=== PATIENT | male | born 1950 | race Caucasian/White ===

== ENCOUNTER 2021-10-11 10:29 | Emergency (ER) | payer OTHER, BC ==
[2021-10-11 12:01] LABS: Absolute Lymphocytes (CBC) 1.8 K/uL (0.7-4.9); Basophils % 0.9 % (0-1.3); Lymphocytes % 19.9 % (15.3-44.8); MPV 8.3 fL (7.6-11.3); RBC Red Blood Cell Count 5.31 M/uL (4.33-5.43)
[2021-10-11 12:07] LABS: Urine Blood Negative (Negative); Urine Glucose Negative (Negative); Urine Protein Negative (Negative); Urine Specific Gravity >=1.030 (1.005-1.030)
[2021-10-11 12:19] LABS: Albumin 3.5 g/dL (3.4-5.0); Bilirubin Direct 0.1 mg/dL (0-0.2); Bilirubin Total 0.5 mg/dL (0.2-1.0); Potassium 4.4 mmol/L (3.5-5.1); Protein, Total 7.4 g/dL (6.4-8.2)
--- NOTE | 2021-10-11 12:58 | RAD REPORT ---
EXAM DESCRIPTION: CTAbdomen Pelvis W Contrast - 10/11/2021 12:43 pm CLINICAL HISTORY: ABD PAIN COMPARISON: Abdomen Pelvis W Contrast dated 06/25/2016; CT ABD PELVIS W CONTRAST dated 05/27/2012 TECHNIQUE: CT of the abdomen and pelvis was performed. All CT scans are performed using dose optimization technique as appropriate and may include automated exposure control or mA/KV adjustment according to patient size. FINDINGS: Lower chest: No acute abnormality. Liver: Hepatic steatosis. Biliary: No biliary ductal dilatation. Stomach: No significant focal abnormality. Duodenum: No significant focal abnormality. Pancreas: No significant abnormality. Spleen: No significant abnormality. Adrenal: No suspicious lesions. Kidney/ureter: No hydronephrosis. No renal calculi. Too small to characterize and/or benign appearing renal lesions are noted. Retroperitoneum: No retroperitoneal adenopathy. Vascular: No aneurysm. Atherosclerosis. Bowel: No significant focal abnormality. Appendectomy. Peritoneum: No ascites or free air. Small fat containing left inguinal hernia. Bladder: Grossly unremarkable. Reproductive: Mild prostatomegaly. Bones: No acute fracture. Other: n/a IMPRESSION: No acute intra-abdominal or pelvic finding. Incidental findings as noted above.
--- NOTE | 2021-10-11 13:10 | ER ---
Nurse's Notes [facility] Name: Butch Jaramillo Sr Age: 71 yrs Sex: Male : 1950 Arrival Date: 10/11/2021 Time: 10:30 Bed 15 Private MD: Merritt Wheeler V Diagnosis: Constipation, unspecified Presentation: 10/11 10:55 Chief complaint: Patient states: Left side back pain that comes around to [facility] x 3 days. vg1 Denies nausea/vomiting but states that stool is 'ribbon like' for the past three days. States "I tried to go to the restroom this morning and I couldn't". Coronavirus screen: Vaccine status: Patient reports receiving the 2nd dose of the covid vaccine. Client denies travel out of the [place] in the last 14 days. At this time, the client does not indicate any symptoms associated with coronavirus-19. Ebola Screen: Patient negative for fever greater than or equal to 101.5 degrees Fahrenheit, and additional compatible Ebola Virus Disease symptoms. Initial Sepsis Screen: Does the patient meet any 2 criteria? No. Patient's initial sepsis screen is negative. Does the patient have a suspected source of infection? No. Patient's initial sepsis screen is negative. Risk Assessment: Do you want to hurt yourself or someone else? Patient reports no desire to harm self or others. Onset of symptoms was October 08, 2021. 10:55 Method Of Arrival: Ambulatory vg1 10:55 Acuity: BREANNA 3 vg1 Triage Assessment: 10:57 General: Appears in no apparent distress. uncomfortable, Behavior is calm, cooperative. vg1 Pain: Complains of pain in posterior aspect of left lateral abdomen and left lower quadrant Pain currently is 7 out of 10 on a pain scale. Historical: - Allergies: 10:57 No Known Allergies; vg1 - PMHx: 10:57 Hypertensive disorder; Hypercholesterolemia; vg1 - PSHx: 10:57 Appendectomy; vg1 - Immunization history:: Client reports receiving the 2nd dose of the Covid vaccine. - Social history:: Smoking status: Patient denies any tobacco usage or history of. Patient/guardian denies using alcohol, street drugs, The patient lives with family. - Family history:: not pertinent. Screenin:15 Abuse screen: Denies threats or abuse. Denies injuries from another. Nutritional jg9 screening: No deficits noted. Tuberculosis screening: No symptoms or risk factors identified. Fall Risk None identified. Assessment: 11:15 General: Appears in no apparent distress. Behavior is calm, cooperative, appropriate jg9 for age. Pain: Complains of pain in abdomen-left flank. Pain: Quality of pain is described as. Neuro: No deficits noted. Cardiovascular: No deficits noted. Respiratory: No deficits noted. GI: Reports lower abdominal pain, constipation. : No deficits noted. EENT: No deficits noted. Derm: No deficits noted. Musculoskeletal: No deficits noted. Vital Signs: 10:55 BP 149 / 97; Pulse 83; Resp 16; Temp 98.1; Pulse Ox 97% ; Weight 127.01 kg; Height 6 vg1 ft. 0 in. (182.88 cm); Pain 7/10; 11:45 BP 149 / 90; Pulse 79; Resp 17 S; Pulse Ox 96% on R/A; jg9 11:49 BP 162 / 98; Pulse 67; Resp 16; Temp 98.1; Pulse Ox 100% on R/A; em1 13:15 BP 160 / 92; Pulse 66; Resp 16; Pulse Ox 96% on R/A; jg9 10:55 Body Mass Index 37.97 (127.01 kg, 182.88 cm) vg1 ED Course: 10:30 Patient arrived in ED. am2 10:30 Merritt Wheeler MD is Private Physician. am2 10:57 Triage completed. vg1 10:57 Arm band placed on. vg1 11:01 Ulises Haji MD is Attending Physician. ma2 11:15 Nighat Munoz is Primary Nurse. jg9 11:15 Patient has correct armband on for positive identification. Bed in low position. Call jg9 light in reach. 11:49 Initial lab(s) drawn, by me, sent to lab. Inserted saline lock: 20 gauge in left em1 antecubital area, using aseptic technique. Blood collected. 12:43 CT Abd/Pelvis - IV Contrast Only In Process Unspecified. EDMS Administered Medications: 13:18 Drug: Fleet Enema (sodium phosphate) 133 ml {Note: Patient will take home and use.} jg9 Route: [place]; 13:20 Follow up: Response: Other jg9 Outcome: 13:10 Discharge ordered by MD. elkins 13:43 Patient left the ED. jg9 Signatures: Dispatcher [employer] Tian Cottrell Amanda am2 Alzahri, Mohammad, MD MD ma2 Melyssa Escamilla RN RN vg1 Nighat Munoz jg9
--- NOTE | 2021-10-11 13:11 | EDPHYS ---
Physician Documentation [facility] Name: Butch Jaramillo Sr Age: 71 yrs Sex: Male : 1950 Arrival Date: 10/11/2021 Time: 10:30 Bed 15 Private MD: Merritt Wheeler V ED Physician Ulises Haji HPI: 10/11 11:48 This 71 yrs old Male presents to ER via Ambulatory with complaints of left side pain. ma2 11:48 Onset: The symptoms/episode began/occurred gradually, 1 day(s) ago. Associated signs ma2 and symptoms: Pertinent negatives: blood in stools, constipation, dysuria, fever, shortness of breath, testicular pain, vomiting blood. Severity of pain: At its worst the pain was moderate in the emergency department the pain is unchanged. The patient has not experienced similar symptoms in the past. Historical: - Allergies: 10:57 No Known Allergies; vg1 - PMHx: 10:57 Hypertensive disorder; Hypercholesterolemia; vg1 - PSHx: 10:57 Appendectomy; vg1 - Immunization history:: Client reports receiving the 2nd dose of the Covid vaccine. - Social history:: Smoking status: Patient denies any tobacco usage or history of. Patient/guardian denies using alcohol, street drugs, The patient lives with family. - Family history:: not pertinent. ROS: 11:48 Constitutional: Negative for fever, chills, and weight loss. ma2 11:48 All other systems are negative. Exam: 11:48 Constitutional: This is a well developed, well nourished patient who is awake, alert, ma2 and in no acute distress. Eyes: Pupils equal round and reactive to light, extra-ocular motions intact. Lids and lashes normal. Conjunctiva and sclera are non-icteric and not injected. Cornea within normal limits. Periorbital areas with no swelling, redness, or edema. ENT: Nares patent. No nasal discharge, no septal abnormalities noted. Tympanic membranes are normal and external auditory canals are clear. Oropharynx with no redness, swelling, or masses, exudates, or evidence of obstruction, uvula midline. Mucous membranes moist. Neck: Trachea midline, no thyromegaly or masses palpated, and no cervical lymphadenopathy. Supple, full range of motion without nuchal rigidity, or vertebral point tenderness. No Meningismus. Chest/axilla: Normal chest wall appearance and motion. Nontender with no deformity. No lesions are appreciated. Cardiovascular: Regular rate and rhythm with a normal S1 and S2. No gallops, murmurs, or rubs. Normal PMI, no JVD. No pulse deficits. Respiratory: Lungs have equal breath sounds bilaterally, clear to auscultation and percussion. No rales, rhonchi or wheezes noted. No increased work of breathing, no retractions or nasal flaring. Abdomen/GI: Soft, non-tender, with normal bowel sounds. No distension or tympany. No guarding or rebound. No evidence of tenderness throughout. Skin: Warm, dry with normal turgor. Normal color with no rashes, no lesions, and no evidence of cellulitis. MS/ Extremity: Pulses equal, no cyanosis. Neurovascular intact. Full, normal range of motion. Neuro: Awake and alert, GCS 15, oriented to person, place, time, and situation. Cranial nerves II-XII grossly intact. Motor strength 5/5 in all extremities. Sensory grossly intact. Cerebellar exam normal. Normal gait. Vital Signs: 10:55 BP 149 / 97; Pulse 83; Resp 16; Temp 98.1; Pulse Ox 97% ; Weight 127.01 kg; Height 6 vg1 ft. 0 in. (182.88 cm); Pain 7/10; 11:45 BP 149 / 90; Pulse 79; Resp 17 S; Pulse Ox 96% on R/A; jg9 11:49 BP 162 / 98; Pulse 67; Resp 16; Temp 98.1; Pulse Ox 100% on R/A; em1 13:15 BP 160 / 92; Pulse 66; Resp 16; Pulse Ox 96% on R/A; jg9 10:55 Body Mass Index 37.97 (127.01 kg, 182.88 cm) vg1 MDM: 11:02 Patient medically screened. ma2 11:48 Differential diagnosis: diverticulitis, gastritis, gastroesophageal reflux disease, ma2 Irritable bowel syndrome. 13:10 Data reviewed: vital signs, nurses notes. Counseling: I had a detailed discussion with ma2 the patient and/or guardian regarding: the historical points, exam findings, and any diagnostic results supporting the discharge/admit diagnosis, the presence of at least one elevated blood pressure reading (>120/80) during this emergency department visit, the need for outpatient follow up. Response to treatment: the patient's symptoms have markedly improved after treatment. 10/11 11:27 Order name: Basic Metabolic Panel; Complete Time: 12:59 ma2 10/11 11:27 Order name: CBC with Diff; Complete Time: 12:59 ma2 10/11 11:27 Order name: Hepatic Function; Complete Time: 12:59 ma2 10/11 11:27 Order name: Lipase; Complete Time: 12:59 ma2 10/11 11:27 Order name: CT Abd/Pelvis - IV Contrast Only; Complete Time: 12:59 ma2 10/11 12:07 Order name: Urine Dipstick-Ancillary EDNJ 10/11 11:27 Order name: IV Saline Lock; Complete Time: 12:01 ma2 10/11 11:27 Order name: Labs collected and sent; Complete Time: 12:01 ma2 10/11 11:27 Order name: Urine Dipstick-Ancillary (obtain specimen); Complete Time: 13:11 ma2 Administered Medications: 13:18 Drug: Fleet Enema (sodium phosphate) 133 ml {Note: Patient will take home and use.} jg9 Route: [place]; 13:20 Follow up: Response: Other jg9 Disposition Summary: 10/11/21 13:10 Discharge Ordered Location: Home ma2 Condition: Stable ma2 Diagnosis - Constipation, unspecified ma2 Followup: ma2 - With: Private Physician - When: Tomorrow - Reason: If symptoms return, Continuance of care Discharge Instructions: - Discharge Summary Sheet ma2 - Constipation, Adult, [id number] ma2 Forms: - Medication Reconciliation Form ma2 - Thank You Letter ma2 - Antibiotic Education ma2 - Prescription Opioid Use ma2 Prescriptions: - Fleet Enema - apply 1 vial by RECTAL route 2 times per day; 5 vial; Refills: 0, Product ma2 Selection Permitted - Colace 100 mg Oral Tablet - take 1 tablet by ORAL route every 12 hours; 14 tablet; Refills: 0, Product ma2 Selection Permitted Signatures: Dispatcher [employer] EDMS Ulises Haji MD MD ma2 Melyssa Escamilla, RN RN vg1 Nighat Munoz jg9
[2021-10-11] MEDS ORDERED: FLEET ENEMA ADULT PR ONE (13:17)
[2021-10-11 14:03] VITALS: TEMP 98.1
[2021-10-11 14:20] VITALS: BP 160/92; O2SAT 96
== END 2021-10-11 13:43 | disposition home or self-care (01) ==
LOC: ER 10:29
DX: K59.00 Constipation, unspecified (principal); I10 Essential (primary) hypertension
CPT/HCPCS: 85025; 80048; 36415; 80076; 81003; 83690; 74177; 99284; Q9967

== ENCOUNTER 2024-02-09 14:48 | Observation (INO) | payer OTHER ==
[2024-02-09] MEDS: NACHLORIDE 0.45% 1,000 ML IV SCH (16:41)
[2024-02-09 16:58] VITALS: BMI 36.1
[2024-02-09] MEDS ORDERED: LOPERAMIDE HCL 2 MG CAPSULE PO PRN (17:00)
[2024-02-09] MEDS ORDERED: ONDANSETRON 4 MG (ODT) TAB PO PRN (17:00)
[2024-02-09] MEDS ORDERED: ACETAMINOPHEN 325 MG TABLET PO PRN (17:00)
[2024-02-09] MEDS: PNEUMOCOCCAL VACCINE 0.5 ML IMVAC ONE (17:00)
[2024-02-09] MEDS ORDERED: ONDANSETRON 4 MG/2 ML VIAL IV PRN (17:00)
[2024-02-09] MEDS ORDERED: POLYETHYL GLY 3350 17 GM/DOSE PO PRN (17:00)
[2024-02-09] MEDS ORDERED: DIPHENHYDRAMINE 25 MG TAB/CAP PO PRN (17:00)
[2024-02-09] MEDS: INFLUENZA VACCINE (for 6+ mo) 0.5 ML DOSE IMVAC ONE (17:00)
[2024-02-09] MEDS: ENOXAPARIN 40 MG/0.4 ML SQ SCH (17:23)
[2024-02-09 17:53] LABS: Absolute Basophils 0.1 K/uL (0-0.5); Absolute Eosinophils 0.1 K/uL (0-0.5); Absolute Monocytes 0.7 K/uL (0.1-1.3); Absolute Neutrophil 5.8 K/uL (1.8-8.0); Basophils % 0.9 % (0-1.3); Eosinophils % 1.2 % (0-4.4); Hematocrit 45.5 % (39.6-49.0); Hemoglobin 15.4 g/dL (13.6-17.9); Lymphocytes % 22.6 % (15.3-44.8); MCH 30.5 pg (27.0-35.0); MCHC 33.8 g/dL (32.0-36.0); MCV 90.2 fL (80-100); MPV 8.2 fL (7.6-11.3); Monocytes % 7.9 % (3.3-12.3); Neutrophils % 67.4 % (41.7-73.7); Nucleated Red Blood Cells % 0.1 % (0-0); Platelets 227 thou/uL (152-406); RBC Red Blood Cell Count 5.04 M/uL (4.33-5.43)
[2024-02-09 17:57] LABS: PT Prothrombin Time 11.4 SECONDS (9.5-12.5); Protime INR 1.04
[2024-02-09 18:34] LABS: Albumin 3.4 g/dL (3.4-5.0); Anion Gap 8.2 mEq/L (5.0-15.0); Bilirubin Direct 0.1 mg/dL (0-0.2); Bilirubin Indirect, Calculated 0.4 mg/dL (0.2-0.8); Bilirubin Total 0.5 mg/dL (0.2-1.0); Globulin 3.3 g/dL (2.3-3.5); Magnesium 2.2 mg/dL (1.6-2.4); Phosphorus 3.7 mg/dL (2.5-4.9); Potassium 4.2 mEq/L (3.5-5.1); Protein, Total 6.7 g/dL (6.4-8.2); Thyroid Stimulating Hormone 1.27 uIU/mL (0.358-3.740)
--- NOTE | 2024-02-09 20:39 | RAD REPORT ---
EXAM DESCRIPTION: CT - Abdomen Pelvis W Contrast - 02/09/2024 8:14 pm CLINICAL HISTORY: Abdominal pain COMPARISON: 2020 TECHNIQUE: Computed axial tomography of the abdomen and pelvis was obtained. 100 cc Isovue-300 is ad ministered intravenously. Oral contrast was given. All CT scans are performed using dose optimization technique as appropriate and may include automated exposure control or mA/KV adjustment according to patient size. FINDINGS: Mild fatty liver Spleen, pancreas, adrenals and kidneys appear unremarkable. There is no evidence of diverticulitis Prostate gland is moderately enlarged. Small left inguinal hernia. 5 centimeter lucency containing calcification within the left femur is un changed 2011 and likely benign IMPRESSION: No acute abnormality is displayed
--- NOTE | 2024-02-09 20:48 | RAD REPORT ---
EXAM DESCRIPTION: Dulce Peacock (2 Views)02/09/2024 7:56 pm CLINICAL HISTORY: Abdominal pain COMPARISON: 2016 FINDINGS: The lungs appear clear of acute infiltrate. The heart is normal size IMPRESSION: No acute abnormalities displayed
[2024-02-09] MEDS: Meropenem 1,000 MG in NA CHLORIDE 0.9% 100 ML IV SCH (20:50)
[2024-02-10 07:28] LABS: Absolute Eosinophils 0.2 K/uL (0-0.5); Absolute Lymphocytes (CBC) 2.4 K/uL (0.7-4.9); Absolute Monocytes 0.7 K/uL (0.1-1.3); Absolute Neutrophil 6.1 K/uL (1.8-8.0); Basophils % 0.5 % (0-1.3); Eosinophils % 1.7 % (0-4.4); Hematocrit 45.2 % (39.6-49.0); Hemoglobin 14.9 g/dL (13.6-17.9); Lymphocytes % 25.5 % (15.3-44.8); MCH 30.2 pg (27.0-35.0); MCV 91.3 fL (80-100); Monocytes % 7.7 % (3.3-12.3); Neutrophils % 64.6 % (41.7-73.7); Nucleated Red Blood Cells % 0.1 % (0-0); Platelets 232 thou/uL (152-406); RBC Red Blood Cell Count 4.95 M/uL (4.33-5.43); Red Cell Distribution Width 13.8 % (12.1-15.2)
[2024-02-10 07:37] LABS: Anion Gap 7.9 mEq/L (5.0-15.0); Magnesium 2.2 mg/dL (1.6-2.4); Potassium 3.9 mEq/L (3.5-5.1)
[2024-02-10 08:56] VITALS: BP 142/79; TEMP 97
--- NOTE | 2024-02-10 09:15 | RAD REPORT ---
EXAM DESCRIPTION: MRI - Lumbar Spine Wo Con - 02/10/2024 8:42 am CLINICAL HISTORY: Radiculopathy COMPARISON: 03/01/2014, CT 02/09/2024 TECHNIQUE: Sagittal T1-weighted, T2-weighted and T2-STIR weighted sequences were obtained. Axial T1 -weighted and heavily T2-weighted sequenceswere obtained through the lumbar disc levels. FINDINGS: Lumbar bodies are normal in height and alignment. No suspicious marrow signal. No paraspin al masses. Partially imaged left renal cyst. The canal appears congenitally small. The conus terminates at T12. T12-L1 level: No significant findings. L1-2 level: No significant findings. L2-3 level: Subligamentous disc bulge with facet ligamentum flavum hypertrophy results in some flatte ir[place] of ventral thecal sac but overall no significant central spinal stenosis or neural foraminal salomon rowing. L3-4 level: Broad-based disc bulge with facet ligamentum flavum hypertrophy without significant neura l foraminal narrowing or clinically significant central spinal stenosis. L4-5 level: Mild disc height loss. Broad-based disc bulge with facet ligamentum flavum hypertrophy re sults in moderate right and mild left neural foraminal narrowing. Central spinal stenosis is moderat e. There is some encroachment on the left L5 nerve root at the subarticular zone. L5-S1 level: Mild broad-based disc bulge with facet hypertrophy and small facet effusions results in mild to moderate bilateral neural foraminal narrowing. An annular fissure is present in the disc. No significant central spinal stenosis. Previously noted right L5-S1 synovial cyst is no longer identifi ed. IMPRESSION: Multilevel degenerate disc disease as noted above. With regard to a radiculopathy, neura l foraminal narrowing is most advanced on the right at L4-5. Central spinal stenosis is moderate at L 4-5 as well with some encroachment on the traversing left L5 nerve root at the subarticular zone.Mild to moderate neural foraminal narrowing present bilaterally at L5-S1.
[2024-02-10 09:31] VITALS: O2SAT 94
--- NOTE | 2024-02-11 06:48 | P.DS ---
Admission Date: 02/09/24 Discharge Date: 02/11/24 Disposition: ROUTINE DISCHARGE Discharge Condition: GOOD Hospital Course: DAVID IS MORBIDLY OBESE GM WITH LLQ AND L FLANK PAIN. CLINICALLY DIVERTICULITIS FAILED TO RECOVER AFTER ABX. CT DOES NOT SHOW ANY INFECTIIOUS CHANGES. LUMBAR MRI SHOWS SEVERE SPINAL STENOSIS WHICH IS THE CAUSE OF RADIATING PAIN. HE IS DCED HOME WITH GABAPENTIN AND MEDROL PACK. Vital Signs/Physical Exam: Temp Pulse Resp BP Pulse Ox 97 F 73 18 142/79 H 93 02/10/24 08:00 02/10/24 08:00 02/10/24 08:00 02/10/24 08:00 02/10/24 08:00 Laboratory Data at Discharge: WBC 9.40 thou/uL (4.3-10.9) 02/10/24 05:50 Hgb 14.9 g/dL (13.6-17.9) 02/10/24 05:50 Hct 45.2 % (39.6-49.0) 02/10/24 05:50 Plt Count 232 thou/uL (152-406) 02/10/24 05:50 PT 11.4 SECONDS (9.5-12.5) 02/09/24 17:41 INR 1.04 02/09/24 17:41 APTT 33.9 SECONDS (24.3-36.9) 02/09/24 17:41 Sodium 139 mEq/L (136-145) 02/10/24 05:50 Potassium 3.9 mEq/L (3.5-5.1) 02/10/24 05:50 BUN 10 mg/dL (7-18) 02/10/24 05:50 Creatinine 0.86 mg/dL (0.70-1.30) 02/10/24 05:50 Glucose 94 mg/dL (74-106) 02/10/24 05:50 Phosphorus 3.7 mg/dL (2.5-4.9) 02/09/24 17:41 Magnesium 2.2 mg/dL (1.6-2.4) 02/10/24 05:50 Total Bilirubin 0.5 mg/dL (0.2-1.0) 02/09/24 17:41 AST 22 U/L (15-37) 02/09/24 17:41 ALT 32 U/L (16-61) 02/09/24 17:41 Alkaline Phosphatase 52 U/L (45-117) 02/09/24 17:41 Home Medications: Finasteride 5 mg PO DAILY 05/28/12 buPROPion HCl [Wellbutrin Sr] 150 mg PO Q12H 02/28/14 Atorvastatin Calcium [Lipitor] 40 mg PO BEDTIME 02/09/24 Levothyroxine Sodium 25 mcg PO DAILY 02/09/24 Losartan Potassium 50 mg PO DAILY 02/09/24 Omeprazole [Prilosec] 40 mg PO DAILY 02/09/24
== END 2024-02-10 10:13 | disposition home or self-care (01) ==
LOC: 4TH 14:48
PROVIDERS: ADMIT Internal Medicine; ATTEND Internal Medicine
DX: R10.32 Left lower quadrant pain (principal); K57.92 Diverticulitis of intestine, part unspecified, without perforation or abscess without bleeding; E66.01 Morbid (severe) obesity due to excess calories; Z68.36 Body mass index [BMI] 36.0-36.9, adult
CPT/HCPCS: 36415; 71046; 72148; 74177; 80048; 80053; 82248; 82607; 83036; 83735; 84100; 84443; 85025; 85610; 85730; G0378; G0379; J1650; J2185; Q9967

== ENCOUNTER 2024-09-26 10:02 | Day surgery (SDC) | payer OTHER ==
--- NOTE | 2024-09-21 12:02 | RAD REPORT ---
EXAMINATION: TWO VIEW CHEST XR CLINICAL INDICATION: Male, 74 years old. [facility] MA[facility] pre op for day surgery. Hypertension TECHNIQUE: 2 view radiographs of the chest were performed. COMPARISON: 02/09/2024 FINDINGS: The lungs are well inflated and clear. No pneumothorax or sizable effusion. The heart is normal in si ze. Mediastinal contours are unremarkable. IMPRESSION: No acute or significant abnormalities.
[2024-09-21 12:08] LABS: Absolute Basophils 0.1 K/uL (0-0.5); Absolute Eosinophils 0.2 K/uL (0-0.5); Absolute Lymphocytes (CBC) 2.1 K/uL (0.7-4.9); Absolute Monocytes 0.6 K/uL (0.1-1.3); Absolute Neutrophil 5.8 K/uL (1.8-8.0); Basophils % 0.6 % (0-1.3); Eosinophils % 2.1 % (0-4.4); Hematocrit 49.1 % (39.6-49.0); Hemoglobin 16.3 g/dL (13.6-17.9); Lymphocytes % 24.2 % (15.3-44.8); MCH 30.5 pg (27.0-35.0); MCHC 33.1 g/dL (32.0-36.0); MPV 8.9 fL (7.6-11.3); Monocytes % 6.7 % (3.3-12.3); Neutrophils % 66.4 % (41.7-73.7); Platelets 228 thou/uL (152-406); RBC Red Blood Cell Count 5.33 M/uL (4.33-5.43); Red Cell Distribution Width 13.8 % (12.1-15.2)
[2024-09-21 12:12] LABS: PT Prothrombin Time 11.2 SECONDS (9.4-12.5)
[2024-09-21 12:18] LABS: Anion Gap 8.1 mEq/L (5.0-15.0); Potassium 4.1 mEq/L (3.5-5.1)
--- NOTE | 2024-09-25 12:09 | EKG ---
Test Date: 2024-09-21 Test Time: 11:49:23 Divorce Mediator: DOLLY MEASUREMENT RESULTS: Intervals: Rate: 77 OK: 232 QRSD: 82 QT: 356 QTc: 402 [place]: P: 46 OK: 232 QRS: -23 T: 48 INTERPRETIVE STATEMENTS: Sinus rhythm with 1st degree AV block Low voltage QRS Borderline ECG Compared to ECG 06/25/2016 17:56:34 First degree AV block now present Low QRS voltage now present Electronically Signed On 09-25-24 12:03:34 [employer] by Jacinto Britt
[2024-09-26] MEDS ORDERED: Ringers Lactate 1,000 ML IV ONE (10:17)
[2024-09-26] MEDS ORDERED: LIDOCAINE 1% MPF 5 ML VIAL ONE (12:29)
[2024-09-26] MEDS ORDERED: FENTANYL CITR 100 MCG/2 ML ONE ×2 (12:29→13:28)
[2024-09-26] MEDS ORDERED: propofoL 200 MG/20 ML VIAL IV ONE (12:29)
[2024-09-26] MEDS ORDERED: ONDANSETRON 4 MG/2 ML VIAL ONE (12:29)
[2024-09-26] MEDS: CEFAZOLIN SODIUM 2 GM/VIAL ONE (13:12)
[2024-09-26] MEDS ORDERED: Phenylephrine HCl 10 MG/ML 1 ML VIAL ONE (13:25)
[2024-09-26] MEDS ORDERED: CODEINE 30MG/APAP 300MG TAB PO PRN (14:27)
[2024-09-26] MEDS ORDERED: PHENAZOPYRIDINE 100MG TAB PO ONE (14:27)
[2024-09-26 14:37] VITALS: O2SAT 95
--- NOTE | 2024-09-26 14:50 | P.OP ---
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 No the source of the gross hematuria was distinctly identified other than the presence of obstruction due to BPH. As a result, he was counseled on the need for biopsy and fulguration. Procedure note: The patient was consented in the preoperative holding area before being transferred to the operative suite where general anesthesia was induced. He was given Ancef 2 g IV antimicrobial prophylaxis, and pneumoboots were provided for DVT prophylaxis. He was placed in the lithotomy position, padded and secured to the table appropriately. His genitalia was prepped with Hibiclens and he was draped in standard fashion. The case has begun using a 22 Vincentian rigid cystoscope to traverse the urethra, and within the bulbar urethra, there was an area of stricture narrowing, which I was able to pass with some manipulation of the beak of the cystoscope. However, in the membranous urethra, an additional area of stricture narrowing was encountered which was approximately 12 Vincentian in diameter. This was not passable by the 22 Vincentian rigid cystoscope; so I passed a Super Stiff guidewire via the scope through the strictured opening and ultimately into his bladder with ease. Leaving the wire in place, I remove the cystoscope and then used S curved sequential dilators to dilate the strictured area from 16 Vincentian to 20 Vincentian. I then was able to backloaded the cystoscope over the wire and traverse the urethra navigating beyond significant prostatic urethral obstruction with lateral lobar hypertrophy and a significantly elevated median bar with mild intravesical projection abutting the trigone. There was significant elevation of the bladder neck noted. Upon entry into the bladder, I decompressed of fluid and urine and then surveyed the bladder in its entirety using a 30 degree lens followed by a 70 degree lens. As it previously been identified in the office, a tiny area of papillary urothelial neoplasm was identified lateral to the right ureteral orifice measuring only approximately 2 to 3 mm in diameter. Additionally, there was an area of hypervascularity in the trigone just beyond the lip of the portion of the prostate that was intravesically projecting. As a result, I utilized cold cup biopsy forceps to b iopsy and remove the papillary neoplasm lateral to the right ureteral orifice. I then took additional biopsies from the area of hypervascular irregular mucosa distal to the trigone on the right. Each of these areas was then carefully fulgurated using a Bugbee electrode and sterile water with a cautery setting of 30. I continued the fulguration decompressing the bladder as necessary in order to achieve near complete hemostasis. Each of the biopsy specimens was sent for pathologic analysis. I then decompressed his bladder of fluid and urine and removed the cystoscope. At this point, I did note some bleeding from the meatus associated with prior urethral dilations. As a result, I passed a 20 Vincentian coud tip catheter via his urethra, but this did not seem to smoothly pass into his bladder. I attempted to irrigate the catheter, but it did not irrigate properly. As a result, I remove the catheter and utilized the cystoscope to traverse the urethra and into his bladder before passing the Super Stiff wire back into the bladder and then passing the 20 Vincentian [place] tip catheter over the wire successfully at this time into his bladder. 15 cc of sterile water was placed in the balloon. I then irrigated the catheter again using a 60 cc catheter tip syringe to remove any clot. Once the urine was minimally pink, the catheter was connected to a leg bag and he was taken out of the lithotomy position. He was then awakened from general anesthesia before being transferred to a stretcher. He was then transferred to the recovery room in good condition. Complications: None Discharge disposition: He will be given a voiding trial in the recovery room prior to discharge today. Subsequent follow-up should be established in 1 to 2 weeks time to discuss the results of the pathology of today's biopsies. Additionally, consideration for subsequent management of his obstruction due to BPH should be given.
[2024-09-26 15:22] VITALS: BP 143/80; TEMP 97
== END 2024-09-26 15:35 | disposition home or self-care (01) ==
LOC: OR 10:02
PROVIDERS: ATTEND Urology
PROC: 0T7D8DZ Dilation of Urethra with Intraluminal Device, Via Natural or Artificial Opening Endoscopic (ICD-10-PCS; 2024-09-26)
PROC: 0TBB8ZX Excision of Bladder, Via Natural or Artificial Opening Endoscopic, Diagnostic (ICD-10-PCS; principal; 2024-09-26 12:30)
DX: C67.9 Malignant neoplasm of bladder, unspecified (principal); R31.0 Gross hematuria
CPT/HCPCS: 52204; 52281; 93005; 87088; 85025; 87086; 80048; 36415; 85610; 88305; 71046; J2704; J2003; J2371; J3010 ×2; J2405; J7120

== ENCOUNTER 2025-06-25 07:57 | Day surgery (SDC) | payer OTHER ==
[2025-06-25 09:45] LABS: Absolute Lymphocytes (CBC) 1.9 K/uL (0.7-4.9); Hematocrit 48.1 % (39.6-49.0); Hemoglobin 16.2 g/dL (13.6-17.9); MCH 30.1 pg (27.0-35.0); MCHC 33.6 g/dL (32.0-36.0); MCV 89.4 fL (80-100); MPV 8.4 fL (7.6-11.3); Nucleated RBC Absolute Count 0.0 (0-0); Nucleated Red Blood Cells % 0.1 % (0-0); RBC Red Blood Cell Count 5.38 M/uL (4.33-5.43); White Blood Count 8.50 thou/uL (4.3-10.9)
[2025-06-25 09:50] LABS: PT Prothrombin Time 12.0 SECONDS (10-13.0); PTT, Activated Partial Thromb 30.3 SECONDS (27.2-37.4); Protime INR 1.06
[2025-06-25 10:23] LABS: C-Reactive Protein < 2.90 mg/L (<3.00)
[2025-06-25 15:13] VITALS: BMI 35.2
[2025-06-25 15:21] VITALS: BP 151/88; TEMP 97.9; O2SAT 97
--- NOTE | 2025-06-25 17:42 | RAD REPORT ---
Exam: Lumbar spine puncture CLINICAL HISTORY: Hydrocephalus, tremors TECHNIQUE: Risks, benefits and alternatives to the procedure explained to the patient and informed co nsent obtained. Patient placed prone into the fluoroscopy suite. Skin and deeper tissues anesthetized with lidocaine. Under fluoroscopic guidance a 22-gauge spinal needle advanced into the thecal sac L2-3 level. The tap was traumatic. Opening pressure 7. Closing pressure 6. 21 cc CSF removed and sent to the laboratory. Patient experienced no immediate complication One fluoroscopic spot image obtained. Fluoroscopy time 2 minutes IMPRESSION: Lumbar puncture
[2025-06-25 18:58] LABS: Color of Supernate Not Xanthochromic (Not Xantho); Color of fluid Pink (COLORLESS); Fluid Total Volume 21 ml
== END 2025-06-25 14:58 | disposition home or self-care (01) ==
LOC: RAD 07:57 → DS 14:58
PROVIDERS: ATTEND Specialist
DX: G91.8 Other hydrocephalus (principal); M48.02 Spinal stenosis, cervical region
CPT/HCPCS: 36415; 62328; 82390; 82525; 82607; 82945; 84157; 84425; 85025; 85610; 85730; 86140; 87070; 89050